=== PATIENT | female | born 1955 | race Caucasian/White ===

== ENCOUNTER 2017-05-03 17:31 | Emergency (ER) | payer OTHER ==
[2017-05-03 18:00] VITALS: BP 134/67
[2017-05-03] MEDS ORDERED: Bacitracin Oint 1 GM U/D Packet TOP ONE (18:43)
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
--- NOTE | 2017-05-04 09:11 | CR ---
Left elbow There is a displaced fracture of the olecranon. There is a second fracture line involving the trochl ear notch of the elbow. There is involvement of the articular surface. The distal humerus and radius appear intact. No significant posterior soft tissue thickening. Impression: 1. Fractures of the ulna as described above.
== END 2017-05-03 19:32 | disposition home or self-care (01) ==
LOC: JP.ED 17:31
DX: S52.032A Displaced fracture of olecranon process with intraarticular extension of left ulna, initial encounter for closed fracture (principal); Z98.890 Other specified postprocedural states; V29.9XXA Motorcycle rider (driver) (passenger) injured in unspecified traffic accident, initial encounter
CPT/HCPCS: 29105; 73070-26-LT; 73070-LT; 99284-25